=== PATIENT | female | born 1950 | race Two or more races ===

== ENCOUNTER → 2017-02-19 | Outpatient (CLI) | payer MEDICARE ==
[~2017-02-19] MED LIST: ACETAMINOPHEN325 MG PO; ACETAMINOPHEN500 M7 PO; AMITRIPTYLINE H25 MG PO; ASPIRIN81 M2 PO; BAYER ASPIRIN325 M1 PO; BENAZEPRIL HCL10 M1 PO; BENAZEPRIL HCL10 MG PO; CALCIUM; CHOLECALCIFEROL; COUMADIN3 MG PO; COUMADIN5 MG PO; DOC-Q-LACE100 MG PO; DURAGESIC1 EAC1 TD; DURAGESIC100 MCG EXT; EFFEXOR XR150 MG PO; FERROUS SULFATE PO; FLEXERIL10 MG PO; FUROSEMIDE40 MG PO; GABAPENTIN800 MG PO; GLUCOPHAGE500 MG PO; HAIR, SKIN & N1 EAC1 PO; HAIR, SKIN & N1 EACH PO; HYDROCODON-ACE1 EAC5 PO; K-DUR20 ME2 PO; MAGNESIUM500 MG PO; METFORMIN HCL500 M1 PO; MULTIPLE VITAMI1 T11 PO; NAPROXEN SODIU220 M1 PO; NEURONTIN800 MG PO; NICOTINE TRANSD14 MG TOP; NORCO 10/3251 TAB PO; VANCOMYCIN1.25 GM/25 IV; VENLAFAXINE HCL75 MG PO; VITAMIN B122500 MCG
[2017-02-19 12:30] LABS: INR 1.4; PROTHROMBIN TIME (PATIENT) 15.2 SECONDS (9.6-11.5)
== END | disposition home or self-care (01) ==
LOC: CLAB 11:38
PROVIDERS: Orthopaedic Surgery
DX: Z51.81 Encounter for therapeutic drug level monitoring (principal); Z89.522 Acquired absence of left knee; Z79.01 Long term (current) use of anticoagulants
CPT/HCPCS: 36415; 85610

== ENCOUNTER → 2017-02-24 | Outpatient (CLI) | payer MEDICARE | END | disposition home or self-care (01) | LOC: CLAB 17:39 | DX: T84.52XA Infection and inflammatory reaction due to internal left hip prosthesis, initial encounter (principal) | CPT/HCPCS: 36415; 85652; 86140 ==

== ENCOUNTER → 2017-03-10 | Outpatient (CLI) | payer MEDICARE | END | disposition home or self-care (01) | LOC: CLAB 17:34 | DX: T84.54XA Infection and inflammatory reaction due to internal left knee prosthesis, initial encounter (principal) | CPT/HCPCS: 36415; 85652; 86140 ==

== ENCOUNTER → 2017-03-24 | Outpatient (CLI) | payer MEDICARE ==
[2017-03-24 13:43] LABS: BASOPHIL# 0.1 X10e3 (0-0.3); BASOPHIL% 0.7 % (0-2.5); EOSINOPHIL# 0.2 X10e3 (0-0.7); EOSINOPHIL% 2.4 % (0.0-7.0); LYMPHOCYTE# 1.7 X10e3 (1.0-3.5); LYMPHOCYTE% 19.2 % (17.0-45.0); MEAN CELL VOLUME 84.8 FL (83-96); MEAN CORPUSCULAR HEMOGLOBIN 27.4 PG (28-34); MEAN CORPUSCULAR HGB CONC 32.3 g/dL (30-36); MONOCYTE# 0.4 X10e3 (0-1.0); MONOCYTE% 3.9 % (3.0-12.0); NEUTROPHIL# 6.7 X10e3 (1.5-7.1); NEUTROPHIL% 73.8 % (40-75); PLATELET COUNT 316 X10e3 (140-420); RED BLOOD COUNT 3.66 X10e (3.90-5.30); RED CELL DISTRIBUTION WIDTH 16.3 % (11.0-15.5); WHITE BLOOD COUNT 9.1 X10e3 (4.0-10.5)
[2017-03-24 13:45] LABS: DIFF IND NO
== END | disposition home or self-care (01) ==
LOC: CLAB 12:47
PROVIDERS: Orthopaedic Surgery
DX: L08.9 Local infection of the skin and subcutaneous tissue, unspecified (principal)
CPT/HCPCS: 36415; 85025; 85652; 86140

== ENCOUNTER → 2017-04-02 | Outpatient (CLI) | payer MEDICARE ==
[2017-04-02 10:58] LABS: URINE APPEARANCE CLEAR; URINE BILIRUBIN NEG (NEG); URINE BLOOD NEG (NEG); URINE COLOR YELLOW; URINE GLUCOSE NEG (NEG); URINE KETONE NEG (NEG); URINE LEUKOCYTE ESTERASE NEG (NEG); URINE NITRATE NEG (NEG); URINE PROTEIN NEG (NEG); URINE SPECIFIC GRAVITY 1.014 (1.003-1.035); URINE UROBILINOGEN 0.2 MG/DL (NEG)
[2017-04-02 11:15] LABS: URINE SOURCE CLEAN CATCH
[2017-04-02 11:16] LABS: CULTURE INDICATED? NO
== END | disposition home or self-care (01) ==
LOC: CLAB 09:43
PROVIDERS: Nurse Practitioner
DX: R35.0 Frequency of micturition (principal)
CPT/HCPCS: 81003; G0463

== ENCOUNTER → 2017-05-25 | Outpatient (CLI) | payer MEDICARE ==
--- NOTE | ~2017-05-25 | CO ---
Unit #: [id number] #: [id number] Patient: AMY LEON [id number] [address] [place], [place] [address] [id number] O MR#: [id number] NAME: AMY LEON ROOM: Age: 66 Sex: F Admission Date: 05/25/2017 : 1950 Attending Physician: Christian Ritter M.D. Primary Care Physician: Mike Chapman M.D. Consultation Date: 05/25/2017 CONSULTATION REPORT REASON FOR CONSULTATION Preoperative medical evaluation prior to reimplant of left total knee with frozen section, possible spacer exchange scheduled by Dr. Ritter for 06/01/2017. HISTORY OF PRESENT ILLNESS The patient is a 66-year-old female, who presents to preprocedural screening for the reason as indicated above. The patient reports continued toe-touch weightbearing on the left lower extremity with assistance of a walker for ambulation. She complains of continuous left knee pain described as throbbing and tightness. She denies upper chest, upper back, arm, neck, jaw pain or pressure. Denies PND, snoring, or dyspnea on exertion. Denies lightheadedness, dizziness, presyncope, syncope, or palpitations. She denies history of myocardial infarction, congestive heart failure, CVA, TIA, diabetes mellitus, or kidney disease. She has been evaluated by Dr. Ritter and scheduled for the above-referenced procedure. PAST MEDICAL HISTORY 1. Osteoarthritis. 2. Risk factors for obstructive sleep apnea. 3. Left knee infection. 4. Type 2 diabetes mellitus. 5. Gastroesophageal reflux disease. 6. Hypertension. 7. Neuropathy of both hands, legs, and arms. 8. Depression. 9. Chronic pain from degenerative disk disease. 10. Sickle cell trait. 11. Chronic anemia. 12. Tobacco use. 13. History of postoperative urinary retention. 14. Urinary incontinence. PAST SURGICAL HISTORY 1. Back surgery. 2. Left total knee surgery x2. 3. Left knee spacer placement. 4. Right total knee arthroplasty. 5. Right knee revision. 6. Tubal ligation. 7. Tubal with removal of ovary. 8. Hysterectomy. 9. Colonoscopy. Unit #: [id number] #: [id number] Patient: AMY LEON 10. Left knee replacement. 11. Left knee hardware removal. Please note, this patient denies a personal and family history of complications to anesthesia. ALLERGIES Denies latex allergy. Adverse reactions to medications include morphine which causes severe headache and Darvocet causes her to feel "jittery." No known medication allergies. CURRENT MEDICATIONS Multivitamin with minerals one tab p.o. daily, calcium plus D 600 mg tab one p.o. daily, magnesium 500 mg p.o. daily, Glucophage 500 mg p.o. daily, Neurontin 800 mg p.o. t.i.d., hydrocodone/acetaminophen 10/325 mg tab one p.o. q.8 hours p.r.n. pain, K-Dur 20 mEq p.o. t.i.d., Duragesic 100 mcg transdermally every 72 hours, Effexor XR 150 mg p.o. daily, benazepril HCl 10 mg p.o. daily, furosemide 20 mg p.o. daily, naproxen sodium two caps p.o. b.i.d. dosage to be clarified, Flexeril 10 mg p.o. t.i.d., Vitamin B12 1000 mcg p.o. daily, acetaminophen 1000 mg p.o. every 6 hours p.r.n. pain, amitriptyline HCL 25 mg p.o. at bedtime, aspirin 81 mg p.o. daily. SOCIAL HISTORY Smokes 10 cigarettes a day for the past 30 years. Denies EtOH and illicit drug use. FAMILY HISTORY Hypertension. REVIEW OF SYSTEMS The patient complains of leg cramps in the lower extremities, chronic back pain, and urinary incontinence. A 10-point review of systems is conducted and otherwise negative except as indicated under history of present illness above. PHYSICAL EXAMINATION GENERAL: A 66-year-old female, awake and alert in no acute distress. VITAL SIGNS: Temperature 97.1, heart rate 92, respiratory rate 18, blood pressure 102/63, oxygen saturation 97% on room air. HEENT: Atraumatic and normocephalic. Sclerae anicteric. No discharge from eyes, ears, or nares. LYMPH: No preauricular, postauricular, tonsillar, submental, anterior, posterior, cervical supra or infraclavicular adenopathy. ENDOCRINE: No thyromegaly, thyroid nodules, or tenderness. RESPIRATORY: Clear to auscultation in all keene bilaterally without wheezes, rhonchi, or rales. CARDIOVASCULAR: S1, S2. Regular rate and rhythm without murmur or rub. GI: Bowel sounds are positive x4. Soft, nontender, nondistended. EXTREMITIES: No edema, cyanosis, or clubbing. Immobilizer on the left lower extremity. MUSCULOSKELETAL: Strength 5/5 in all extremities bilaterally with exception of left lower extremity limited secondary to spacer and immobility. NEUROLOGIC: Alert and oriented x3. Speech clear. Cranial nerves II through XII are grossly intact. Follows directions during examination. DIAGNOSTIC STUDIES LABORATORY RESULTS: WBC 10.7, hemoglobin 10.9, hematocrit 32.3, platelets Unit #: [id number] #: [id number] Patient: AMY LEON 211,000, sedimentation rate 45, sodium 143, potassium 4.3, chloride 109, CO2 27, glucose 69, BUN 13, creatinine 0.8, calcium 9.1. AST 20, ALT 13, alkaline phosphatase 82, bilirubin total 0.4, total protein 6.5, albumin 3.4, C-reactive protein 2.0. PT 11.4, INR 1.1. Urinalysis, negative with neither microscopic nor culture indicated and blood type B positive, antibody screen negative. IMAGING STUDIES: Two-view chest x-ray, date of study 12/03/2016, impression no active process. CARDIOVASCULAR STUDIES: 12-lead EKG, date of study 12/03/2016, normal sinus rhythm, normal ECG confirmed by Kilo Bridges M.D. IMPRESSION The patient is a 66-year-old female, who presents to preprocedural screening for; 1. Preoperative medical evaluation prior to reimplantation of the left total knee with frozen section, possible spacer exchange. The patient's Long revised cardiac risk index is equal to 0.4%. This represents the patient's perioperative risk of fatal or nonfatal myocardial infarction, cardiopulmonary arrest, arrhythmia and/or pulmonary edema. This has been discussed in detail with her and she wishes to proceed with surgery as scheduled at this time. 2. Risk factors for obstructive sleep apnea. We will monitor postoperatively and placed on MIKE protocol if indicated. 3. Type 2 diabetes mellitus with mild hypoglycemia today. The patient states all she had was a cup of coffee this morning. She was asymptomatic and was treated with peanut butter crackers. We will monitor Accu-Cheks, low-dose sliding scale insulin protocol. Hold metformin per hospital protocol and monitor oral intake on constant carb diet postoperatively. 4. Gastroesophageal reflux disease. We will monitor and add proton pump inhibitor if indicated postoperatively. 5. Hypertension. Monitor blood pressure and adjust medications if indicated. 6. Neuropathy of bilateral arms and legs. We will continue home dose of Neurontin, but hold for sedation postoperatively. 7. Depression. Continue Effexor XR postoperatively. The patient is stable today. 8. Chronic pain secondary to degenerative disk disease and left knee pain. The patient currently takes Duragesic 100 mcg transdermally every 72 hours. I will ask the RN to confirm with the anesthesiologist and Dr. Ritter's recommendations with regard to this patch perioperatively. 9. Sickle cell trait. 10. Chronic anemia. The patient's hemoglobin and hematocrit are consistent with previous values in [facility]. We will monitor perioperatively. 11. Tobacco use. We will offer nicotine transdermal patch postoperatively p.r.n. nicotine withdrawal. 12. History of postoperative urinary retention. We will monitor for postop urinary retention and implement Dr. Ritter's postoperative catheterization orders if indicated. 13. History of urinary incontinence. Her UA today is negative. Thank you for allowing us to participate in the care of this patient. We will gladly follow the patient for postop medical management pending order of Dr. Ritter. Again, the perioperative Duragesic management per order of Dr. Ritter in consultation with the anesthesiologist and per anesthesia guidelines. I have discussed this with the patient as well. Unit #: [id number] #: [id number] Patient: AMY LEON Dictated by... Maura White A.P.R.N. for Kymberly Dumont/joyce TD: 05/25/2017 19:47 JOB #: [id number] CONSULTATION REPORT Page 1 of 1 X Maura White APRN X CONSULTATION REPORT
[2017-05-25 10:53] LABS: HEMATOCRIT 32.3 % (35.0-45.0); HEMOGLOBIN 10.9 gm/dL (12.0-16.0); MEAN CELL VOLUME 82.6 FL (83-96); MEAN CORPUSCULAR HEMOGLOBIN 27.7 PG (28-34); MEAN CORPUSCULAR HGB CONC 33.6 g/dL (30-36); MEAN PLATELET VOLUME 8.3 FL (6.5-11.5); RED BLOOD COUNT 3.91 X10e (3.90-5.30); RED CELL DISTRIBUTION WIDTH 16.1 % (11.0-15.5); WHITE BLOOD COUNT 10.7 X10e3 (4.0-10.5)
[2017-05-25 11:08] LABS: INR 1.1; PROTHROMBIN TIME (PATIENT) 11.4 SECONDS (10.0-11.7)
[2017-05-25 11:34] LABS: ALBUMIN SERUM 3.4 g/dL (3.5-5.0); BILIRUBIN,TOTAL 0.4 mg/dL (0.2-2.0); BUN/CREATININE RATIO 16.25; CALCIUM SERUM 9.1 mg/dL (8.4-10.2); CREATININE SERUM 0.8 mg/dL (0.6-1.4); POTASSIUM 4.3 mmol/L (3.5-5.1); PROTEIN TOTAL SERUM 6.5 g/dL (6.0-8.3)
[2017-05-25 12:06] LABS: URINE APPEARANCE CLEAR; URINE BILIRUBIN NEG (NEG); URINE BLOOD NEG (NEG); URINE COLOR YELLOW; URINE GLUCOSE NEG (NEG); URINE KETONE NEG (NEG); URINE LEUKOCYTE ESTERASE NEG (NEG); URINE NITRATE NEG (NEG); URINE PROTEIN NEG (NEG); URINE SPECIFIC GRAVITY 1.015 (1.003-1.035); URINE UROBILINOGEN 0.2 MG/DL (NEG)
[2017-05-25 12:10] LABS: CULTURE INDICATED? NO; URINE SOURCE CLEAN CATCH
== END | disposition home or self-care (01) ==
LOC: CAMB 05-20 10:00
PROVIDERS: Orthopaedic Surgery
DX: Z01.812 Encounter for preprocedural laboratory examination (principal)
CPT/HCPCS: 36415; 80053; 81003; 82947; 83036; 85027; 85610; 85652; 86140; 86850; 86900; 86901; 87070

== ENCOUNTER 2017-06-01 09:22 | Inpatient (IN) | payer MEDICARE ==
[~2017-06-01] VITALS: Ht 149.9 cm; Wt 65.0 kg
--- NOTE | ~2017-06-01 | OR ---
Unit #: [id number] #: [id number] Patient: AMY LEON [id number] [address] [place], [place] [address] [id number] I MR#: [id number] NAME: AMY LEON ROOM: [facility] Date of Procedure: 06/01/2017 Admission Date: 06/01/2017 Surgeon: Christian Ritter M.D. : 1950 Attending Physician: Christian Ritter M.D. Primary Care Physician: Mike Chapman M.D. OPERATIVE REPORT PREOPERATIVE DIAGNOSIS Possible resolved infection of the left knee with retained spacer. POSTOPERATIVE DIAGNOSIS Possible resolved infection of the left knee with retained spacer. PROCEDURE PERFORMED Antibiotic spacer exchange. ASSISTANTS Sriram and Tania. ANESTHESIA General. ESTIMATED BLOOD LOSS 200 to 300 mL. DRAINS One Hemovac. DESCRIPTION OF PROCEDURE The patient brought to the holding room, given an adductor canal block, brought back to the operating room, given a general anesthetic. Tourniquet placed around the left leg. The left leg was prepped and draped in a sterile fashion. The previous skin incision was opened. The subcutaneous dissected away and a medial arthrotomy was performed. Clear fluid was encountered. This was cultured. We then fragmented the previous static spacer, removed this and the Prasad natalia which had been used to reinforce it. We then debrided scar tissue in the medial and lateral gutters until we could flex the knee to 90 degrees. We then obtained intramedullary tissue for frozen section on the femoral side. There was 0 to 1 polys per high-powered field, but on the tibial side, there were 9 to 11 polys per high-powered field. For the this reason, we elected to hold off on re-implanting her knee. We then mixed 2 packages of Palacos with 2 g of vancomycin in each pack. A Prasad natalia was obtained and then the Palacos cement was packed into the proximal tibia and distal femur. The Prasad natalia was positioned in the canal and then the rest of the cement was used to pack between the bones. After the cement had hardened, the patient then had the wound irrigated with a dilute Betadine solution and bacitracin, closed over a drain using 0 Vicryl in the arthrotomy, 0 and 2-0 Vicryl in the subcutaneous, and ritesh in the skin. She was placed Unit #: [id number] #: [id number] Patient: AMY LEON into a knee immobilizer. Dictated by... Kymberly Bose/joyce TD: 06/01/2017 19:27 JOB #: [id number] OPERATIVE REPORT Page 1 of 1 X Christian Ritter MD X PROCEDURE OPERATIVE NOTE
--- NOTE | ~2017-06-01 | DS ---
Unit #: [id number] #: [id number] Patient: AMY LEON [id number] [facility] [address] [facility]. [place], [place] [address] [id number] I MR#: [id number] NAME: AMY LEON ROOM: [facility] Age: 66 Sex: F Admission Date: 06/01/2017 : 1950 Discharge Date: 06/04/2017 Attending Physician: Christian Ritter M.D. Primary Care Physician: Mike Chapman M.D. DISCHARGE SUMMARY REASON FOR ADMISSION History of left total knee infection with antibiotic spacer. PROCEDURE Antibiotic spacer exchange. HOSPITAL COURSE The patient came in to [facility] understanding that, if she continued to have infection in her left knee, she would get a spacer exchange. That is exactly what happened. Today the patient is in stable condition. Her temperature is 98.5, blood pressure 117/62, heart rate 88 and regular, respirations 18. Her incision is healing well. Her neurovascular exam is intact. She has 2+ pulses in her lower extremity. The plan will be to send her home today. The patient was going to go home yesterday, but she received some packed red blood cells because she had a critical hemoglobin. DISPOSITION With home health. DISCHARGE MEDICATIONS Per med/rec list. DIAGNOSTIC STUDIES PERTINENT LABS: PT was 15.2, INR 1.4. WBC is 12.1, hemoglobin 7.8. FOLLOWUP INSTRUCTIONS The patient will be discharged home later today under the care of home health. The patient will need PT and INR done tomorrow and then every Thursday and . Call the results to or fax to Oct at . The patient will be toe-touch weightbearing on the left lower extremity. She will get antibiotics per ID. She will follow up with ID per their recommendations. The patient will need skin ritesh removed 2 weeks postoperatively, then Steri-Strips placed for one week. The patient should wear TEDS during the day, off at night. The patient should follow up with Dr. Ritter in 4-6 weeks. Dictated by... Rodrick Bhatia P.A.-C- for Christian Ritter M.D. RAMIRO/rocco TD: 06/04/2017 11:18 JOB #: [id number] Unit #: [id number] #: [id number] Patient: AMY LEON DISCHARGE SUMMARY Page 1 of 1 X X DISCHARGE SUMMARY
--- NOTE | ~2017-06-01 | XA166 ---
[facility] A Service of [facility] RADIOLOGY TEXT RESULTS PATIENT: AMY LEON LOCATION: C4B 451-01 : [birth year] UNIT #: [id number] AGE: [address]: Christian Ritter MD SEX: F ORDER DR: [id number] [facility] [address]. [place], [place] [address] [id number] I MR#: [id number] Acc #: [id number] NAME: AMY LEON : 1950 SEX: F STUDY DATE/TIME: 06/02/2017 15:23 UNIT: [facility] ROOM: [facility] STUDY DESCRIPTION: XA PICC Line Placement WO Port Attending Physician: Christian Ritter M.D. Ordering Physician: Aman Oshea M.D. Primary Care Physician: Mike Chapman M.D. MEDICAL IMAGING REPORT This report is preliminary unless electronic signature is present EXAM Right arm PICC line insertion, 06/02/2017. CLINICAL HISTORY IV access needed. PRE-PROCEDURE The procedure was explained to the patient and/or patient claim service representative including risks, benefits, potential complications and potential for alternative forms of treatment. Informed consent was obtained, and prior to initiating the procedure a formal timeout procedure was performed. PROCEDURE Using full standard sterile barrier technique, including caps, gowns, gloves, masks, as well as sterile skin preparation and standard sterile draping, the right arm was prepped and draped in the usual fashion, and real-time sterile ultrasound guidance was used to localize an arm vein and to confirm vessel patency. A hard copy ultrasound image was recorded. After local anesthesia with 1% Xylocaine, the vein was punctured using real-time sterile ultrasound guidance, and an 0.018 guidewire was advanced into the superior vena cava, using fluoroscopic guidance. A 5-Beninese dual-lumen PICC was then measured and deployed with the tip positioned in the superior vena cava. The position of the line was documented with a radiographic image. The line was secured in place with an adhesive dressing and an antibiotic patch was applied. Total fluoro time was 0.2 minutes. Single spot image. IMPRESSION Successful placement of a 5-Beninese dual-lumen PowerPICC via the right arm under ultrasound and fluoroscopic guidance. The tip of the PICC is in good position in the superior vena cava. [facility] A Service of [facility] RADIOLOGY TEXT RESULTS PATIENT: AMY LEON LOCATION: [place] [address] : [birth year] UNIT #: [id number] AGE: [address]: Christian Ritter MD SEX: F ORDER DR: A single fluoroscopic spot image was obtained. Dictated by... Fahad Johnson M.D. THIS IS AN ELECTRONICALLY VERIFIED REPORT Fahad Johnson M.D. at 06/03/2017 2:54 PM SHAR/layla TD: 06/02/2017 23:43 JOB #: [id number] MEDICAL IMAGING REPORT Page 1 of 1 COPY
--- NOTE | ~2017-06-01 | CO ---
Unit #: [id number] #: [id number] Patient: AMY LEON [id number] [facility]. [address] [place], [place] [address] [id number] I MR#: [id number] NAME: AMY LEON ROOM: 451 Age: 66 Sex: F Admission Date: 06/01/2017 : 1950 Attending Physician: Christian Ritter M.D. Primary Care Physician: Mike Chapman M.D. Requesting Physician: Christian Ritter M.D. Consultation Date: 06/02/2017 CONSULTATION REPORT REASON FOR CONSULTATION Left knee infection. 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 Cultures were negative. She was treated with six weeks of IV antibiotics. She came in yesterday for second stage reimplantation, but intraoperative frozen section showed 9-11 high-powered field neutrophils from the tibial side of the biopsy. She underwent spacer exchange. Cultures are pending. She is on vancomycin. An Infectious Disease consultation was requested for further evaluation and antibiotic management. Patient denies any fever, chills, cough, congestion, nausea, vomiting, or diarrhea. Please refer to our (1) for further details. PHYSICAL EXAMINATION GENERAL: Right now, she is laying comfortably and does not seem to be in any distress. VITAL SIGNS: Temperature 98.5, pulse 109, respirations 18, and blood pressure 131/51. HEENT: Unremarkable. CHEST: Clear to auscultation. HEART: Normal S1 and S2. ABDOMEN: Soft and nontender. EXTREMITIES: Left knee has an immobilizer. DIAGNOSTIC STUDIES LABORATORY: BUN 18 and creatinine 0.6. Hemoglobin 7.1 and hematocrit 21.6. That is all the labs that are available at this time. Pathology report is pending. Per notes as noted above, 9-11 neutrophils per high-powered field. Cultures are pending. ASSESSMENT Left knee prosthetic joint infection. PLAN Continue with vancomycin. Consider adding gram-negative coverage. Follow up on cultures. Get a PICC line. Will need another round of six weeks of IV antibiotics. Further recommendations depending upon the course. Will get CBC, ESR, BMP, and CRP tomorrow morning. I would like to thank Dr. Ritter for asking us to participate in the care of this patient. We will follow this patient along with you. Unit #: [id number] #: [id number] Patient: AMY LEON Dictated by... Kymberly Lujan TD: 06/02/2017 20:19 JOB #: [id number] CONSULTATION REPORT Page 1 of 1 X Aman Oshea MD X CONSULTATION REPORT
[~2017-06-01 09:22] MED LIST changes: -COUMADIN5 MG PO; -NICOTINE TRANSD14 MG TOP; -VANCOMYCIN1.25 GM/25 IV
[2017-06-01 10:35] LABS: INR 1.1; PROTHROMBIN TIME (PATIENT) 12.3 SECONDS (10.0-11.7)
[2017-06-02 03:48] LABS: HEMATOCRIT 21.6 % (35.0-45.0); HEMOGLOBIN 7.1 gm/dL (12.0-16.0)
[2017-06-02 04:01] LABS: CALCIUM SERUM 7.9 mg/dL (8.4-10.2); CREATININE SERUM 0.6 mg/dL (0.6-1.4); GLOM FILT RATE Estimated 96.3 mL/min (>60); INR 2.4; MAGNESIUM 1.7 mg/dL (1.6-3.0); POTASSIUM 4.8 mmol/L (3.5-5.1)
[2017-06-02 04:04] LABS: PROTHROMBIN TIME (PATIENT) 26.5 SECONDS (10.0-11.7)
[2017-06-02 09:29] LABS: HEMATOCRIT 20.7 % (35.0-45.0)
[2017-06-03 03:14] LABS: HEMATOCRIT 18.7 % (35.0-45.0); MEAN CELL VOLUME 83.7 FL (83-96); MEAN CORPUSCULAR HEMOGLOBIN 27.3 PG (28-34); MEAN CORPUSCULAR HGB CONC 32.7 g/dL (30-36); MEAN PLATELET VOLUME 8.6 FL (6.5-11.5); RED BLOOD COUNT 2.24 X10e (3.90-5.30); RED CELL DISTRIBUTION WIDTH 16.3 % (11.0-15.5); WHITE BLOOD COUNT 17.6 X10e3 (4.0-10.5)
[2017-06-03 03:20] LABS: HEMOGLOBIN 6.1 gm/dL (12.0-16.0)
[2017-06-03 03:25] LABS: INR 2.4; PROTHROMBIN TIME (PATIENT) 25.9 SECONDS (10.0-11.7)
[2017-06-03 03:33] LABS: BUN/CREATININE RATIO 28.33; CALCIUM SERUM 7.9 mg/dL (8.4-10.2); CREATININE SERUM 0.6 mg/dL (0.6-1.4); GLOM FILT RATE Estimated 96.3 mL/min (>60); POTASSIUM 4.5 mmol/L (3.5-5.1)
[2017-06-03 11:46] LABS: BASOPHIL# 0.1 X10e3 (0-0.3); BASOPHIL% 0.8 % (0-2.5); EOSINOPHIL# 0.3 X10e3 (0-0.7); EOSINOPHIL% 1.7 % (0.0-7.0); HEMATOCRIT 25.6 % (35.0-45.0); LYMPHOCYTE# 3.2 X10e3 (1.0-3.5); LYMPHOCYTE% 21.8 % (17.0-45.0); MEAN CELL VOLUME 82.5 FL (83-96); MEAN CORPUSCULAR HEMOGLOBIN 28.1 PG (28-34); MEAN CORPUSCULAR HGB CONC 34.1 g/dL (30-36); MEAN PLATELET VOLUME 8.3 FL (6.5-11.5); MONOCYTE# 0.9 X10e3 (0-1.0); MONOCYTE% 6.3 % (3.0-12.0); NEUTROPHIL# 10.3 X10e3 (1.5-7.1); NEUTROPHIL% 69.4 % (40-75); PLATELET COUNT 193 X10e3 (140-420); RED BLOOD COUNT 3.11 X10e (3.90-5.30); WHITE BLOOD COUNT 14.8 X10e3 (4.0-10.5)
[2017-06-03 11:47] LABS: HEMOGLOBIN 8.7 gm/dL (12.0-16.0)
[2017-06-03 11:48] LABS: DIFF IND NO
[2017-06-04 04:14] LABS: BASOPHIL# 0.1 X10e3 (0-0.3); EOSINOPHIL# 0.5 X10e3 (0-0.7); HEMATOCRIT 23.3 % (35.0-45.0); HEMOGLOBIN 7.8 gm/dL (12.0-16.0); LYMPHOCYTE# 2.7 X10e3 (1.0-3.5); LYMPHOCYTE% 22.7 % (17.0-45.0); MEAN CELL VOLUME 83.1 FL (83-96); MEAN CORPUSCULAR HEMOGLOBIN 27.8 PG (28-34); MEAN CORPUSCULAR HGB CONC 33.4 g/dL (30-36); MEAN PLATELET VOLUME 8.4 FL (6.5-11.5); MONOCYTE# 0.7 X10e3 (0-1.0); MONOCYTE% 6.1 % (3.0-12.0); NEUTROPHIL% 66.2 % (40-75); PLATELET COUNT 190 X10e3 (140-420); RED CELL DISTRIBUTION WIDTH 15.9 % (11.0-15.5); WHITE BLOOD COUNT 12.1 X10e3 (4.0-10.5)
[2017-06-04 04:16] LABS: DIFF IND YES
[2017-06-04 04:29] LABS: INR 1.4; PROTHROMBIN TIME (PATIENT) 15.2 SECONDS (10.0-11.7)
[2017-06-04 04:37] LABS: ANISOCYTOSIS MOD; CALCIUM SERUM 7.6 mg/dL (8.4-10.2); CREATININE SERUM 0.5 mg/dL (0.6-1.4); GLOM FILT RATE Estimated 102.3 mL/min (>60); MAGNESIUM 1.6 mg/dL (1.6-3.0); PLATELET ESTIMATE NORMAL (NORMAL); POTASSIUM 3.9 mmol/L (3.5-5.1)
[2017-06-04 04:38] LABS: OVALOCYTES PRESENT; STOMATOCYTE PRESENT
[2017-06-04] MEDS ORDERED: NICOTINE TRANSD14 MG TOP (13:36)
[2017-06-04] MEDS ORDERED: HYDROCODON-ACE1 EAC5 PO (13:38)
[2017-06-04] MEDS ORDERED: COUMADIN5 MG PO (13:38)
[2017-06-04] MEDS ORDERED: VANCOMYCIN1.25 GM/25 IV (13:42)
== END 2017-06-04 15:00 | disposition home health service (06) | DRG 560 ==
LOC: CSUR 09:22 → CPACUOF 10:55 → CSUR 11:00 → CPACUOF 14:21 → C4B 15:36
PROVIDERS: Internal Medicine; Internal Medicine Infectious Disease; Nurse Practitioner; Orthopaedic Surgery
PROC: 0SHB08Z Insertion of Spacer into Left Hip Joint, Open Approach (ICD-10-PCS; 2017-06-01)
PROC: 0SPB08Z Removal of Spacer from Left Hip Joint, Open Approach (ICD-10-PCS; principal; 2017-06-01 11:00)
PROC: 30233N1 Transfusion of Nonautologous Red Blood Cells into Peripheral Vein, Percutaneous Approach (ICD-10-PCS; 2017-06-03)
DX: T84.54XA Infection and inflammatory reaction due to internal left knee prosthesis, initial encounter (principal); D62 Acute posthemorrhagic anemia; I10 Essential (primary) hypertension; E11.9 Type 2 diabetes mellitus without complications; K21.9 Gastro-esophageal reflux disease without esophagitis; G62.9 Polyneuropathy, unspecified; F32.9 Major depressive disorder, single episode, unspecified; Z72.0 Tobacco use; E83.42 Hypomagnesemia; G89.4 Chronic pain syndrome; Z96.653 Presence of artificial knee joint, bilateral; M48.00 Spinal stenosis, site unspecified; D57.3 Sickle-cell trait
CPT/HCPCS: 76937; 77001; 80048; 80202; 82947; 83735; 85014; 85018; 85025; 85027; 85610; 85652; 86140; 86850; 86900; 86901; 86923; 87070; 87075; 87205; 88305; 88331; 97110; 97116; 97161; 97165; 97530; 97535; C1751; G8978-GP; G8979-GP; G8987-GO; G8988-GO; J0131; J0171; J0690; J0735; J1100; J1170; J1650; J1815; J1885; J2250; J2405; J2795; J3010; J3370; J3475; P9016